=== PATIENT | female | born 1995 | race Caucasian/White ===

== ENCOUNTER 2025-03-04 10:17 | Outpatient (AMB) | payer OTHER, SELFPAY ==
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
--- OUTSIDE RECORDS SUMMARY | 2025-03-04 13:26 | XMS_ITS ---
Author Name [facility] Organization Unknown Care Team Organization Name Specialty Phone Email Start Date End Da te [facility] Jb Nieves Primary Care 11/25/20222023 [facility] Kris Pardo Primary Care 04/26/20222023
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
== END 2025-03-04 10:52 | disposition home or self-care (01) ==
LOC: HO.HOS 10:17
PROVIDERS: Visit Provider Physician Assistant
DX: S80.01XA Contusion of right knee, initial encounter (principal)
CPT/HCPCS: 99203

== ENCOUNTER → 2025-03-18 17:47 | Outpatient (BNV) | payer OTHER, SELFPAY | PROVIDERS: Visit Provider Specialist | DX: S80.01XA Contusion of right knee, initial encounter (principal) | CPT/HCPCS: 73721 ==

== ENCOUNTER 2025-03-18 17:48 | Outpatient (REF) | payer OTHER, SELFPAY ==
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
== END 2025-03-18 17:49 | disposition home or self-care (01) ==
LOC: HO.MRI 17:48
PROVIDERS: Visit Provider Physician Assistant
DX: S80.01XA Contusion of right knee, initial encounter (principal)
CPT/HCPCS: 73721

== ENCOUNTER 2025-04-08 08:27 | Outpatient (AMB) | payer OTHER, SELFPAY ==
--- OUTSIDE RECORDS SUMMARY | 2025-04-08 08:43 | XMS_ITS | Encounter Summary ---
Author Organization [facility] Address [address] [place] [address] Care Team Providers Care Obgyn Nurse Name Role Phone Jb Nieves MD Primary Care Provider [phone] Encounter Details Date Type Department Care Team Description 06/09/2023 Pt. Non Urgent Medical Question Medicine/Pediatrics - [place] [address] [place] [address] Jb Nieves MD [address] [place] [address] Elevated triglycerides with high cholesterol (Primary Dx) Social History Tobacco Use Types Packs/Day Years Used Date Smoking Tobacco: Never Smokeless Tobacco: Never Alcohol Use Standard Drinks/Week Comments Not Currently 0 (1 standard drink = 0.6 oz pur e alcohol) special occasions Social Isolation Answer Date Recorded In a typical week, how many times do you talk on the phone with family, friends, or neighbors? More than three times a week 01/01/2020 How often do you get togethe r with friends or relatives? Three times a week 01/01/2020 How often do you attend chur ch or bahai services? Never 01/01/2020 Do you belong to any clubs o r organizations such as mosque groups, unions, fraternal or athletic groups, or school groups? No 01/01/2020 How often do you attend meet ings of the clubs or organizations you belong to? Never 01/01/2020 Are you now , , , , never or living with a partner? Living with partner 01/01/2020 Physical Activity Answer Date Recorded On average, how many days pe r week do you engage in moderate to strenuous exercise (like walking fast, running, jogging, dancing, swimming, biking, or other activities that cause a light or heavy sweat)? 0 days 01/01/2020 On average, how many minutes do you engage in exercise at this level? Not asked Stress Answer Date Recorded Do you feel stress - tense, restless, nervous, or anxious, or unable to sleep at night because your mind is troubled all the time - these days? To some extent 01/01/2020 Financial Resource Strain Answer Date R ecorded How hard is it for you to pa y for the very basics like food, housing, medical care, and heating? Somewhat hard 01/01/2020 Intimate Partner Violence Answer Date R ecorded Within the last year, have y ou been afraid of your partner or ex-partner? No 01/01/2020 Within the last year, have y ou been humiliated or emotionally abused in other ways by your partner or ex-partner? No Within the last year, have y ou been kicked, hit, slapped, or otherwise physically hurt by your partner or ex-partner? No 01/01/2020 Within the last year, have y ou been raped or forced to have any kind of sexual activity by your partner or ex-partner? No 01/01/2020 Food Insecurity Answer Date Recorded Within the past 12 months, y ou worried that your food would run out before you got money to buy more. Never true 01/01/2020 Within the past 12 months, t he food you bought just didn't last and you didn't have money to get more. Never true 01/01/2020 Transportation Needs Answer Date Record ed In the past 12 months, has l ack of transportation kept you from medical appointments or from getting medications? No 12/17 In the past 12 months, has l ack of transportation kept you from meetings, work, or getting things needed for daily living? No 01/01/2020 Sex Assigned at Date Recorded Female 09/06/2019 1:10 AM E DT Job Start Date Occupation Industry Not on file Not on file Not on file documented as of this encounter Miscellaneous Notes * Telephone Encounter - Joanna Cyr R.N. - 06/09/2023 1:09 PM ESTFrom: Gin Bunch To: Becky Nieves Sent: 06/09/2023 12:30 PM EST Subject: Cholesterol These are my recent labs for cholesterol. I see my values have changed, however now it says my LDL is low and triglycerides are high, but the rest are within normal range. I am taking abilify, fluoxetine, hydroxazine, buspar, lecithin, DHA, , and Legendary milk supplements as I'm currently . Could any of this be the cause of my lab results ? Should I be concerned? Should I be taking any meds for cholesterol ? Is there anything other than diet and exercises I should do ? documented in this encounter Plan of Treatment Scheduled Orders Name Type Priority Associated Diagnoses Orde r Schedule CHG LIPID PANEL Lab Routine Elevated triglycerides with high cholesterol Expected: 06/09/2023, Expires: 06/08/2024 documented as of this encounter Visit Diagnoses Diagnosis Elevated triglycerides with high cholesterol- Primary Mixed hyperlipidemia documented in this encounter Care Teams Obgyn Nurse Relationship Specialty Start Date End Date Jb Nieves MD [address] [place] [id number] PCP - General Internal Medicine 08/30/21 documented as of this encounter
--- OUTSIDE RECORDS SUMMARY | 2025-04-08 08:43 | XMS_ITS | Encounter Summary ---
Author Organization [facility] Address [address] [place] [address] Care Team Providers Care Account Services Coordinator Name Role Phone Myrtle Marti MD Primary Care Provider Jenni Yuri Jernigan PA-C Primary Care Provider Unavail able Jb Nieves MD Primary Care Provider [phone] Encounter Details Date Type Department Care Team Description 12/12/2019 Hospital Medical Records [address] [place] [address] Minerva Zapata MD [address] [place] [address] Social History Tobacco Use Types Packs/Day Years [...] often do you attend chur ch or faith services? Never 01/01/2020 Do you belong to any clubs o r organizations such as roman catholic groups, unions, fraternal or athletic groups, or [...] on file documented as of this encounter Plan of Treatment Not on file documented as of this encounter Visit Diagnoses Not on filedocumented in this encounter Care Teams Account Services Coordinator Relationship Specialty Start Date End Date Myrtle Marti MD PCP - General Internal Medicine 12/27/17 1 Yuri Crocker PA-C PCP - General Med/Peds 03/02/21 08/29/21 Jb Nieves MD [address] [place] [address] PCP - General Internal Medicine 08/30/21 documented as of this encounter
--- OUTSIDE RECORDS SUMMARY | 2025-04-08 08:43 | XMS_ITS | Encounter Summary ---
Author Organization [facility] Address [address] [place] [address] Care Team Providers Care Charge Entry Clerk Name Role Phone Myrtle Marti MD Primary Care Provider Jenni Yuri Jernigan PA-C Primary Care Provider Unavail able Jb Nieves MD Primary Care Provider [phone] Encounter Details Date Type Department Care Team Description 05/30/2018 Release of Information Medical Records [address] [place] [address] Abstract, Provider Social History Tobacco Use Types Packs/Day Years Used Date Smoking Tobacco: Never Smokeless Tobacco: Never Alcohol Use Standard Drinks/Week Comments Yes 0 (1 standard drink = 0.6 oz [...] any clubs o r organizations such as buddhism groups, unions, fraternal or athletic groups, or [...] on filedocumented in this encounter Care Teams Charge Entry Clerk Relationship Specialty Start Date End Date Myrtle Marti MD PCP - General Internal Medicine 12/27/17 1 Yuri Crocker PA-C PCP - General Med/Peds 03/02/21 08/29/21 Jb Nieves MD [address] [place] [address] PCP - General Internal Medicine 08/30/21 documented as of this encounter
--- OUTSIDE RECORDS SUMMARY | 2025-04-08 08:43 | XMS_ITS | Encounter Summary ---
Author Organization [facility] Address [address] [place] [address] Care Team Providers Care Counter Pocket Trimmer Name Role Phone Myrtle Marti MD Primary Care Provider Jenni Yuri Jernigan PA-C Primary Care Provider Unavail able Jb Nieves MD Primary Care Provider [phone] Encounter Details Date Type Department Care Team Description 04/22/2019 Maintenance And Repair Worker Report Medical Records [address] [place] [address] Minerva Zapata MD [address] [place] [address] Social History Tobacco Use Types Packs/Day Years [...] any clubs o r organizations such as quaker groups, unions, fraternal or athletic groups, or [...] on filedocumented in this encounter Care Teams Counter Pocket Trimmer Relationship Specialty Start Date End Date Myrtle Marti MD PCP - General Internal Medicine 12/27/17 1 Yuri Crocker PA-C PCP - General Med/Peds 03/02/21 08/29/21 Jb Nieves MD [address] [place] [address] PCP - General Internal Medicine 08/30/21 documented as of this encounter
--- OUTSIDE RECORDS SUMMARY | 2025-04-08 08:43 | XMS_ITS | Encounter Summary ---
Author Organization [facility] Address [address] [place] [address] Care Team Providers Care Finance Intern Name Role Phone Yuri Crocker PA-C Primary Care Provider Unavail able Jb Nieves MD Primary Care Provider [phone] Encounter Details Date Type Department Care Team Description 05/15/2021 Walk In Clinic Visit Medical Records [address] [place] [address] Social History Tobacco Use Types Packs/Day Years [...] often do you attend chur ch or roman catholic services? Never 01/01/2020 Do you belong to any clubs o r organizations such as scientology groups, unions, fraternal or athletic groups, or [...] file Not on file Not on file COVID-19 Exposure Response Date Recorded In the last month, have you been in contact with someone who was confirmed or suspected to have Coronavirus / COVID-19? No / Unsure 04/27/2021 2:14 PM EST documented as of this encounter Plan of Treatment Not on file documented as of this encounter Visit Diagnoses Not on filedocumented in this encounter Care Teams Finance Intern Relationship Specialty Start Date End Date Yuri Crocker PA-C PCP - General Med/Peds 03/02/21 08/29/21 Jb Nieves MD [address] [place] [address] PCP - General Internal Medicine 08/30/21 documented as of this encounter
--- OUTSIDE RECORDS SUMMARY | 2025-04-08 08:43 | XMS_ITS | Encounter Summary ---
Author Organization [facility] Address [address] [place] [address] Care Team Providers Care Title Clerk Name Role Phone Jb Nieves MD Primary Care Provider [phone] Reason for Visit * Reason Onset Date Comments TEST RESULTS 07/15/2022 Encounter Details Date Type Department Care Team Description 07/15/2022 Telephone OBGYN - [facility] [address] [place] [address] Myrtle Coles DO TEST RESULTS Social History Tobacco Use Types Packs/Day Years [...] often do you attend chur ch or spiritism services? Never 01/01/2020 Do you belong to any clubs o r organizations such as gnosticist groups, unions, fraternal or athletic groups, or [...] Exposure Response Date Recorded In the last 10 days, have yo u been in contact with someone who was confirmed or suspected to have Coronavirus/COVID-19? No / Unsure 07/14/2022 8:57 AM EST documented as of this encounter Miscellaneous Notes * Telephone Encounter - Lisa Helton C.M.A. - 07/15/2022 3:20 PM EST Patient verbalized understanding of message and will call office with any questions or concerns. Ultra sound already scheduled, radiology called her. * Telephone Encounter - Elzbieta Benjamin - 07/15/2022 2:28 PM EST Patient returned call to nurse * Telephone Encounter - Lori Matthews L.P.NFracisco - 07/15/2022 2:20 PM EST Left message for pt to call office. Ext [phone] * Telephone Encounter - Lori Matthews L.P.N. - 07/15/2022 2:20 PM EST ----- Message from Myrtle Coles DO sent at 07/14/2022 4:57 PM EST ----- Please call pt and let her know I reviewed US. Looks like it was a bit too early to confirm a completely normal developing , but what was seen appears normal. I will order another scan to bedone in about 2 weeks, when we would expect to see more from an anatomy standpoint. Any significantbleeding or pain in the meantime, please let us know. Thanks Telephone Information: Work Phone Not on file. documented in this encounter Plan of Treatment Not on file documented as of this encounter Visit Diagnoses Not on filedocumented in this encounter Care Teams Title Clerk Relationship Specialty Start Date End Date Jb Nieves MD [address] [place] [address] PCP - General Internal Medicine 08/30/21 documented as of this encounter
--- OUTSIDE RECORDS SUMMARY | 2025-04-08 08:43 | XMS_ITS | Encounter Summary ---
Author Organization [facility] Address [address] [place] [address] Care Team Providers Care Lance Crewmember/Mlrs Sergeant Name Role Phone Jb Nieves MD Primary Care Provider [phone] Encounter Details Date Type Department Care Team Description 10/14/2022 Pt. Non Urgent Medical Question Medicine/Pediatrics - [place] [address] [place] [address] Jb Nieves MD [address] [place] [address] Social History Tobacco Use Types Packs/Day Years [...] often do you attend chur ch or muslim services? Never 01/01/2020 Do you belong to any clubs o r organizations such as restorationism groups, unions, fraternal or athletic groups, or [...] suspected to have Coronavirus/COVID-19? No / Unsure 09/29/2022 2:12 PM EDT documented as of this encounter Plan of Treatment Not on file documented as of this encounter Visit Diagnoses Not on filedocumented in this encounter Care Teams Lance Crewmember/Mlrs Sergeant Relationship Specialty Start Date End Date Jb Nieves MD [address] [place] [address] PCP - General Internal Medicine 08/30/21 documented as of this encounter
--- OUTSIDE RECORDS SUMMARY | 2025-04-08 08:43 | XMS_ITS | Encounter Summary ---
Author Organization [facility] Address [address] [place] [address] Care Team Providers Care Hob Mill Operator Name Role Phone Myrtle Marti MD Primary Care Provider Jenni Yuri Jenrigan PA-C Primary Care Provider Unavail able Jb Nieves MD Primary Care Provider [phone] Encounter Details Date Type Department Care Team Description 02/27/2018 Cook [place]er Report Medical Records [address] [place] [address] Christina Levy MD Social History Tobacco Use Types Packs/Day Years [...] often do you attend chur ch or taoism services? Never 01/01/2020 Do you belong to any clubs o r organizations such as yazidism groups, unions, fraternal or athletic groups, or [...] on filedocumented in this encounter Care Teams Hob Mill Operator Relationship Specialty Start Date End Date Myrtle Marti MD PCP - General Internal Medicine 12/27/17 1 Yuri Crocker PA-C PCP - General Med/Peds 03/02/21 08/29/21 Jb Nieves MD [address] [place] [address] PCP - General Internal Medicine 08/30/21 documented as of this encounter
--- OUTSIDE RECORDS SUMMARY | 2025-04-08 08:43 | XMS_ITS | Encounter Summary ---
Author Organization [facility] Address [address] [place] [address] Care Team Providers Care Pediatric Anesthesiologist Name Role Phone Jb Nieves MD Primary Care Provider [phone] Encounter Details Date Type Department Care Team Description 04/21/2022 Pt. Non Urgent Medical Question Medicine/Pediatrics - [place] [address] [place] [address] Jb Nieves MD [address] [place] [address] Social History Tobacco Use Types Packs/Day Years [...] often do you attend chur ch or confucianist services? Never 01/01/2020 Do you belong to any clubs o r organizations such as sikh groups, unions, fraternal or athletic groups, or [...] encounter Miscellaneous Notes * Telephone Encounter - Arlyn Castillo M.A. - 04/21/2022 8:40 AM EDTFrom: Gin Bunch To: Becky Nieves Sent: 04/21/2022 7:15 AM EDT Subject: Morning vomiting So for the past 1-2 months or so I have been having extreme nausea in the morning and I've been vomiting. Sometimes (like last night at 2 am) I wake up and have to vomit as well because I'm so nausea. Some days are better than others but I am nauseated every single day especially in the mornings until afternoon time. I have taken mul tiple tests and I am not . I am not sure if Ihave really bad anxiety like (I am already on buspar 10mg 3 times a day and hydroxazine 25mg at night) that or if it's Gerd or if there's another issue but my wants me to see my primary care to figure it out. documented in this encounter Plan of Treatment Not on file documented as of this encounter Visit Diagnoses Not on filedocumented in this encounter Care Teams Pediatric Anesthesiologist Relationship Specialty Start Date End Date Jb Nieves MD [address] [place] [address] PCP - General Internal Medicine 08/30/21 documented as of this encounter
--- OUTSIDE RECORDS SUMMARY | 2025-04-08 08:43 | XMS_ITS | Encounter Summary ---
Author Organization [facility] Address [address] [place] [address] Care Team Providers Care Professor Of History Name Role Phone Jb Nieves MD Primary Care Provider [phone] Encounter Details Date Type Department Care Team Description 04/03/2022 Walk In Clinic Visit Medical Records [address] [place] [address] Social History Tobacco Use Types Packs/Day Years [...] 01/01/2020 How often do you attend chur or hindu services? Never 01/01/2020 Do you belong to any clubs o r organizations such as spiritism groups, unions, fraternal or athletic groups, or [...] suspected to have Coronavirus/COVID-19? No / Unsure 03/07/2022 1:31 PM EDT documented as of this encounter Plan of Treatment Not on file documented as of this encounter Visit Diagnoses Not on filedocumented in this encounter Care Teams Professor Of History Relationship Specialty Start Date End Date Jb Nieves MD [address] [place] [address] PCP - General Internal Medicine 08/30/21 documented as of this encounter
--- OUTSIDE RECORDS SUMMARY | 2025-04-08 08:43 | XMS_ITS | Encounter Summary ---
Author Organization [facility] Address [address] [place] [address] Care Team Providers Care Insert Operator Name Role Phone Jb Nieves MD Primary Care Provider [phone] Encounter Details Date Type Department Care Team Description 04/26/2022 Walk In Clinic Visit Medical Records [address] [place] [address] Social History Tobacco Use Types Packs/Day Years [...] How often do you attend chur or roman catholic services? Never 01/01/2020 Do you belong to any clubs o r organizations such as bahai groups, unions, fraternal or athletic groups, or [...] suspected to have Coronavirus/COVID-19? No / Unsure 04/28/2022 10:10 AM EST documented as of this encounter Plan of Treatment Not on file documented as of this encounter Visit Diagnoses Not on filedocumented in this encounter Care Teams Insert Operator Relationship Specialty Start Date End Date Jb Nieves MD [address] [place] [address] PCP - General Internal Medicine 08/30/21 documented as of this encounter
--- OUTSIDE RECORDS SUMMARY | 2025-04-08 08:43 | XMS_ITS | Encounter Summary ---
Author Organization [facility] Address [address] [place] [address] Care Team Providers Care Mandarin Speaking Nanny Name Role Phone Jb Nieves MD Primary Care Provider [phone] Encounter Details Date Type Department Care Team Description 03/12/2023 Pt. Non Urgent Medical Question General Surgery - [place] [address] [facility] [address] [place] [address] Feliz Montero MD [address] [facility] [address] [place] [address] Social History Tobacco Use Types Packs/Day Years [...] often do you attend chur ch or yarsanism services? Never 01/01/2020 Do you belong to any clubs o r organizations such as buddhist groups, unions, fraternal or athletic groups, or [...] encounter Miscellaneous Notes * Telephone Encounter - Faith Pastor - 03/13/2023 10:28 AM EDTFrom: Gin Bunch To: Mayito Winston Sent: 03/12/2023 8:06 AM EDT Subject: Upcoming appointment Hello, what can I expect at the upcoming appointment? I haven't had any symptoms since the doctor did an in office i&d. I was wondering if the visit is still warranted? documented in this encounter Plan of Treatment Not on file documented as of this encounter Visit Diagnoses Not on filedocumented in this encounter Care Teams Mandarin Speaking Nanny Relationship Specialty Start Date End Date Jb Nieves MD [address] [place] [address] PCP - General Internal Medicine 08/30/21 documented as of this encounter
--- OUTSIDE RECORDS SUMMARY | 2025-04-08 08:43 | XMS_ITS | Encounter Summary ---
Author Organization [facility] Address [address] [place] [address] Care Team Providers Care Sand Slinger Operator Name Role Phone Jb iNeves MD Primary Care Provider [phone] Encounter Details Date Type Department Care Team Description 11/02/2021 Walk In Clinic Visit Medical Records [address] [place] [address] Social History Tobacco Use Types Packs/Day Years [...] How often do you attend chur or cheondoism services? Never 01/01/2020 Do you belong to any clubs o r organizations such as episcopal groups, unions, fraternal or athletic groups, or [...] on filedocumented in this encounter Care Teams Sand Slinger Operator Relationship Specialty Start Date End Date Jb Nieves MD [address] [place] [address] PCP - General Internal Medicine 08/30/21 documented as of this encounter
--- OUTSIDE RECORDS SUMMARY | 2025-04-08 08:44 | XMS_ITS | Encounter Summary ---
Author Organization [facility] Address [address] [place] [address] Care Team Providers Care Marine Plumber Name Role Phone Jb Nieves MD Primary Care Provider [phone] Encounter Details Date Type Department Care Team Description 09/01/2022 Release of Information Medical Records [address] [place] [id number] Abstract, Provider Social History Tobacco Use Types [...] often do you attend chur ch or amish services? Never 01/01/2020 Do you belong to any clubs o r organizations such as christianity groups, unions, fraternal or athletic groups, or [...] suspected to have Coronavirus/COVID-19? No / Unsure 09/01/2022 1:39 PM EDT documented as of this encounter Plan of Treatment Not on file documented as of this encounter Visit Diagnoses Not on filedocumented in this encounter Care Teams Marine Plumber Relationship Specialty Start Date End Date Jb Nieves MD [address] [place] [address] PCP - General Internal Medicine 08/30/21 documented as of this encounter
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
--- OUTSIDE RECORDS SUMMARY | 2025-04-08 08:44 | XMS_ITS | Encounter Summary ---
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 Never 01/01/2020 Do you belong to [...] on filedocumented in this encounter Care Teams Hospital Receptionist Relationship Specialty Start Date End Date Jb Nieves MD [address] [place] [id number] PCP - General Internal Medicine 08/30/21 documented as of this encounter
--- NOTE | 2025-04-08 08:52 | MHC.OFFVIS ---
Intake Visit Reasons: OV - right knee MRI review Intake Note: Gin is a 29 year old female who presents today for a MRI review of her right knee. Patient reports she is still having pain and it is getting worse. She mentions when she was going to physical therapy her pain was getting worse. Patient states her pain is on the medial aspect of the knee and behind the patella. On the medial aspect of the knee when bending or weight bearing she feels a pulling/stretched sensation like a hair tie. On her last session of PT she was cycling and they applied electrodes to do some electrical therapy on the lateral aspect of the knee which was fine until at night she felt a lot of pain. HPI HPI OV - right knee MRI review: Details: Ms. Bunch is a 29-year-old female who presents to the office today status post right knee MRI for review. Patient reports that she continues to have right knee pain along the medial aspect and underneath the patella. She has been attending physical therapy but has noticed an increase in pain after sessions. Review of Systems Const All systems reviewed & are unremarkable except as noted in HPI and below Physical Exam Const General: cooperative, healthy appearing and no acute distress Resp Effort & Inspection: normal respiratory effort and able to speak in complete sentences Extrem Other: Right knee: Pain with patellar grind. Tenderness to palpation along the medial joint line. No obvious laxity with patellar apprehension. Full range of motion. Able to perform a straight leg raise. No palpable deformity at the quad tendon insertion. NVI. Psych Appearance: grossly normal Mental Status: mental status grossly normal Attitude: cooperative Office Procedures AMB Joint Injection/Aspiration Joint Injection/Aspiration Primary Site: right knee Prep: site was prepped using aseptic technique, ethochloride spray was applied and injection warnings given Injected: 40 mg of, 1% plain lidocaine, 0.25% bupivacaine, in the joint and decadron Approach Used: anterolateral Procedure: The patient tolerated the procedure well, but had some pain with the injection and there was some relief with the local anesthesia Coding 66298 - Large joint Procedure code (CPT) selection complete Assessment & Plan Assessment & Plan (1) Contusion of right patella: Code(s): S80.01XA - Contusion of right knee, initial encounter Category: Medical Plan Ms. Bunch is a 29-year-old female who presents to the office today status post right knee MRI for review. Patient reports that she continues to have right knee pain along the medial aspect and underneath the patella. She has been attending physical therapy but has noticed an increase in pain after sessions. While in the office today, I reviewed the MRI imaging which was negative for any abnormalities. The patient will continue with physical therapy. I recommended continuation of icing as well as a knee brace. Patient was provided with a Brody Pull knee brace off the shelf today. The patient was offered a cortisone injection in right knee. The patient was explained the risks, benefits, and alternatives to receiving this injection. After receiving consent for the injection, the patient had the procedure done while in the office today. The patient tolerated the procedure well with no complications. Follow-up will be PRN, or sooner if needed Coding Level of Care Code Est Pt Level 3 (71277) Diagnoses Contusion of right patella S80.01XA CPT Codes Coding - 86524 Large joint: 90029 - Large joint ([id number])
== END 2025-04-08 15:50 | disposition home or self-care (01) ==
LOC: HO.HOS 08:28
PROVIDERS: Visit Provider Physician Assistant
DX: S80.01XA Contusion of right knee, initial encounter (principal)
CPT/HCPCS: 20610; 99213

== ENCOUNTER → 2025-04-08 08:27 | Outpatient (BNVA) | payer OTHER, SELFPAY | PROVIDERS: Visit Provider Physician Assistant | DX: S80.01XA Contusion of right knee, initial encounter (principal) | CPT/HCPCS: 20610; J0665; J1100; J2003 ==

== ENCOUNTER 2025-04-25 09:26 | Outpatient (AMB) | payer OTHER, SELFPAY ==
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
[2025-04-25 10:00] VITALS: BMI 30.2
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
== END 2025-04-25 11:21 | disposition home or self-care (01) ==
LOC: HO.HOS 09:27
PROVIDERS: Visit Provider Physical Medicine & Rehabilitation
DX: G44.86 Cervicogenic headache (principal); M79.18 Myalgia, other site
CPT/HCPCS: 99203